=== PATIENT | male | born 1980 | race Caucasian/White ===

== ENCOUNTER 2022-04-24 02:22 | Emergency (ER) | payer MEDICARE, OTHER, SELFPAY ==
[~2022-04-24] VITALS: Ht 182.9 cm; Wt 84.1 kg
[2022-04-24 02:23] VITALS: BP 177/95
== END 2022-04-24 06:59 | disposition left against medical advice (07) ==
LOC: M ED 02:22
DX: Z53.21 Procedure and treatment not carried out due to patient leaving prior to being seen by health care provider (principal)

== ENCOUNTER 2025-03-30 08:04 | Emergency (ER) | payer BC, SELFPAY ==
[~2025-03-30] VITALS: Ht 182.9 cm; Wt 93.3 kg
[2025-03-30] MEDS: FLUORESCEIN OPHTH 1 MG STRIP OS ONE (11:15)
[2025-03-30] MEDS: TETRACAINE 0.5% OPHTH SOLN 4ML OS ONE (11:20)
[2025-03-30] MEDS ORDERED: AMOX875T2 PO (12:58)
[2025-03-30] MEDS ORDERED: amLODIPine 5 MG TAB PO ONE (13:10)
[2025-03-30] MEDS ORDERED: ERYT5OIN25 OP (13:41)
[2025-03-30] MEDS ORDERED: ERYT5OIN25 OS (13:45)
[2025-03-30 13:48] VITALS: BP 140/88; TEMP 98.2; O2SAT 98
[2025-03-30] MEDS: ERYTHROMYCIN OPHTH OINT OS ONE (13:55)
[2025-03-30] MEDS: TETANUS/DIPHTH/ACEL. PERTUSSIS 0.5 ML SYR IM.IMMUN ONE (13:56)
== END 2025-03-30 14:03 | disposition home or self-care (01) ==
LOC: M ED 08:04
DX: T15.02XA Foreign body in cornea, left eye, initial encounter (principal); X58.XXXA Exposure to other specified factors, initial encounter; Y92.009 Unspecified place in unspecified non-institutional (private) residence as the place of occurrence of the external cause; Y93.9 Activity, unspecified; Y99.9 Unspecified external cause status; E11.9 Type 2 diabetes mellitus without complications; F17.200 Nicotine dependence, unspecified, uncomplicated; F12.10 Cannabis abuse, uncomplicated; Z88.6 Allergy status to analgesic agent